=== PATIENT | male | born 1960 | race Two or more races ===

== ENCOUNTER 2016-08-31 13:06 | Inpatient (IN) | payer OTHER ==
[2016-08-31 16:48] VITALS: BMI 29.9
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
[2016-08-31] MEDS ORDERED: MAGNESIUM CITRATE 300 ML BOTTLE PO PRN (18:57)
[2016-08-31] MEDS ORDERED: LOPERAMIDE HCL 2 MG CAPSULE PO PRN (18:57)
[2016-08-31] MEDS ORDERED: ACETAMINOPHEN 325 MG TABLET (FP) PO PRN (18:57)
[2016-08-31] MEDS ORDERED: MENTHOL/PHENOL 1 EACH UD MM PRN (18:57)
[2016-08-31] MEDS ORDERED: guaiFENesin/D-METHORPHAN HB 10 ML UNIT-DOSE CUPS PO PRN (18:57)
[2016-08-31] MEDS ORDERED: IBUPROFEN 400 MG TABLET (FP) PO PRN (18:57)
[2016-08-31] MEDS ORDERED: P-EPHED 60MG/TRIPROLIDI 2.5MG TABLET PO PRN (18:57)
[2016-08-31] MEDS ORDERED: MAGNESIUM HYDROX 2400MG/30ML ORAL SUSPENSION 30 ML CUP PO PRN (18:57)
[2016-08-31] MEDS ORDERED: MAG HYDROX/AL HYDROX/SIMETH 30 ML UNIT-DOSE CUP PO PRN (18:57)
[2016-08-31] MEDS ORDERED: NICOTINE POLACRILEX 2 MG GUM BC PRN (18:57)
[2016-08-31] MEDS: amLODIPine BESYLATE 10 MG TABLET (FP) PO SCH (19:45)
[2016-08-31] MEDS: cloNIDine HCL 0.1 MG TABLET PO PRN (19:45)
[2016-08-31] MEDS ORDERED: METHADONE HCL 10 MG TABLET (FOR DETOX USE ONLY) PO ONE ×2 (20:32→23:00)
[2016-08-31] MEDS: THIAMINE HCL 100 MG TABLET (FP) PO SCH (22:09)
[2016-08-31] MEDS: diphenhydrAMINE HCL 50 MG CAPSULE PO PRN (22:09)
[2016-08-31] MEDS: diazePAM 5 MG TABLET PO PRN (22:09)
[2016-09-01 01:11] LABS: URINE APPEARANCE CLEAR; URINE BILIRUBIN NEGATIVE (NEGATIVE); URINE COLOR AMBER; URINE GLUCOSE (UA) NEGATIVE (NEGATIVE); URINE KETONE NEGATIVE (NEGATIVE); URINE LEUK ESTERASE NEGATIVE (NEGATIVE); URINE NITRITE NEGATIVE (NEGATIVE); URINE UROBILINOGEN NEGATIVE E.U./dl (0.2-1.0)
[2016-09-01 01:13] LABS: URINE BLOOD 3+ (NEGATIVE); URINE PROTEIN 3+ (NEGATIVE)
[2016-09-01 01:26] LABS: GRANULAR CASTS 7 /lpf; URINE BACTERIA FEW /hpf (NONE SEEN); URINE HYALINE CAST 4 /lpf; URINE MUCUS RARE; URINE RBC 34 /hpf (0-3); URINE WBC 4 /hpf (3-5)
[2016-09-01] MEDS: cloNIDine HCL 0.1 MG TABLET PO PRN ×2 (05:32→22:03)
[2016-09-01] MEDS: diazePAM 5 MG TABLET PO PRN ×3 (05:32→22:03)
[2016-09-01 09:43] LABS: MCH 26.8 pg (25.7-33.7); MCHC 32.4 g/dl (32.0-35.9); MEAN CELL VOLUME 82.5 fl (80-96); MEAN PLT VOLUME 8.8 fl (7.5-11.1); PLATELET COUNT 215 K/MM3 (134-434); RDW 21.9 % (11.9-15.9); WHITE BLOOD COUNT 7.9 K/mm3 (4.0-10.0)
--- NOTE | 2016-09-01 09:51 | PN ---
[facility] CIWA - CIWA Score Nausea/Vomitin-No Nausea/No Vomiting Muscle Tremors: 4-Moderate,w/Arms Extend Anxiety: 4-Mod. Anxious/Guarded Agitation: 3 Paroxysmal Sweats: 3 Orientation: 0-Oriented Tacttile Disturbances: 0-None Auditory Disturbances: 0-None Visual Disturbances: 0-None Headache: 0-None Present CIWA-Ar Total Score: 14 S Progress Note (SOAP) Subjective: Sweating,anxiety,tremors,interrupted sleep,restless Objective: 09/01/16 09:50 Vital Signs - 8 hr 09/01/16 09/01/16 09/01/16 03:29 06:23 09:14 Temperature 97.8 F 97.4 F L Pulse Rate 75 77 Respiratory 18 18 18 Rate Blood Pressure 147/97 157/89 Laboratory Tests 08/31/16 23:02 Urine Color Dee Urine Appearance Clear Urine pH 5.0 Ur Specific [place] 1.024 Urine Protein 3+ H Urine Glucose (UA) Negative Urine Ketones Negative Urine Blood 3+ H Urine Nitrite Negative Urine Bilirubin Negative Urine Urobilinogen Negative Ur Leukocyte Esterase Negative Urine RBC 34 Urine WBC 4 Ur Epithelial Cells Rare Urine Bacteria Few Hyaline Casts 4 Granular Casts 7 Urine Mucus Rare labs noted Assessment: 09/01/16 09:51 Withdrawal sx. Plan: Continue detox
[2016-09-01] MEDS ORDERED: METHADONE HCL 10 MG TABLET (FOR DETOX USE ONLY) PO ONE (10:00)
[2016-09-01] MEDS: amLODIPine BESYLATE 10 MG TABLET (FP) PO SCH (10:04)
[2016-09-01] MEDS: PRENATAL VITAMINS W/ FOLIC ACID TABLET (FP) PO SCH (10:04)
[2016-09-01] MEDS: NICOTINE 14 MG/24 HOURS TOPICAL PATCH TD SCH (10:04)
[2016-09-01 10:34] LABS: ALBUMIN 3.3 g/dl (3.4-5.0); ALK PHOS 166 U/L (45-117); ANION GAP 12 (8-16); BILIRUBIN,TOTAL 0.9 mg/dL (0.2-1.0); CALCIUM 8.5 mg/dL (8.5-10.1); CO2 25 mmol/L (21-32); CREATININE 0.9 mg/dL (0.7-1.3); GLUCOSE,RANDOM 119 mg/dL (74-106); SGOT/AST 51 U/L (15-37); SGPT/ALT 32 U/L (12-78); TOT PROT 8.2 g/dl (6.4-8.2)
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
--- NOTE | 2016-09-01 11:47 | EKG ---
Test Reason : Blood Pressure : / mmHG Vent. Rate : 078 BPM Atrial Rate : 078 BPM P-R Int : 200 ms QRS Dur : 112 ms QT Int : 392 ms P-R-T Axes : 020 001 025 degrees QTc Int : 446 ms NORMAL SINUS RHYTHM NORMAL ECG NO PREVIOUS ECGS AVAILABLE Confirmed by KATJA DE LA GARZA MD ([id number]) on 09/01/2016 11:46:42 AM Referred By: Confirmed By:KATJA DE LA GARZA MD
[2016-09-01] MEDS: THIAMINE HCL 100 MG TABLET (FP) PO SCH (22:03)
[2016-09-01] MEDS: diphenhydrAMINE HCL 50 MG CAPSULE PO PRN (22:04)
[2016-09-02] MEDS: PRENATAL VITAMINS W/ FOLIC ACID TABLET (FP) PO SCH (09:35)
[2016-09-02] MEDS: amLODIPine BESYLATE 10 MG TABLET (FP) PO SCH (09:35)
[2016-09-02] MEDS: diazePAM 5 MG TABLET PO PRN ×2 (09:37→22:01)
[2016-09-02] MEDS ORDERED: METHADONE HCL 5 MG TABLET (FOR DETOX USE ONLY) PO ONE (10:00)
[2016-09-02] MEDS: NICOTINE 14 MG/24 HOURS TOPICAL PATCH TD SCH (10:06)
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
--- NOTE | 2016-09-02 10:28 | PN ---
[facility] COWS - Scale Resting Pulse: 1= [place] 81-100 Sweatin= Chills/Flushing Restless Observation: 3= Extraneous Movement Pupil Size: 2= Moderately Dilated Bone or Joint Aches: 4=Acute Joint/Muscle Pain Runny Nose/ Eye Tearin= Nasal Congestion GI Upset > 30mins: 1= Stomach Cramp Tremor Observation of Outstretched Hands: 2= Slight Tremor Visible Yawning Observation: 2= >3x During Session Anxiety or Irritability: 2=Irritable/Anxious Goose Flesh Skin: 0=Smooth Skin COWS Score: 19
[2016-09-02] MEDS ORDERED: LISINOPRIL 10 MG TABLET (FP) PO SCH (10:45)
[2016-09-02] MEDS ORDERED: CYCLOBENZAPRINE HCL 10 MG TABLET (FP) PO ONE (11:03)
[2016-09-02] MEDS: CYCLOBENZAPRINE HCL 10 MG TABLET (FP) PO SCH ×2 (14:17→22:01)
[2016-09-02] MEDS: THIAMINE HCL 100 MG TABLET (FP) PO SCH (22:01)
[2016-09-02] MEDS: diphenhydrAMINE HCL 50 MG CAPSULE PO PRN (22:01)
[2016-09-03] MEDS: diazePAM 5 MG TABLET PO PRN ×2 (05:23→13:13)
[2016-09-03] MEDS: CYCLOBENZAPRINE HCL 10 MG TABLET (FP) PO SCH ×3 (05:23→22:12)
[2016-09-03] MEDS ORDERED: METHADONE HCL 5 MG TABLET (FOR DETOX USE ONLY) PO ONE (10:00)
[2016-09-03] MEDS: NICOTINE 14 MG/24 HOURS TOPICAL PATCH TD SCH (10:11)
[2016-09-03] MEDS: PRENATAL VITAMINS W/ FOLIC ACID TABLET (FP) PO SCH (10:11)
[2016-09-03] MEDS: amLODIPine BESYLATE 10 MG TABLET (FP) PO SCH (10:11)
--- NOTE | 2016-09-03 14:35 | PN ---
[facility] Progress Note (SOAP) Subjective: Interrupted sleep, Tremors, Body Aches, Sweating, Stomach Cramping. Objective: PT. A & O X 3. 09/03/16 14:33 Vital Signs Temperature 96.4 F L 09/03/16 13:15 Pulse Rate 97 H 09/03/16 13:15 Respiratory Rate 19 09/03/16 13:15 Blood Pressure 133/89 09/03/16 13:15 O2 Sat by Pulse Oximetry (%) Laboratory Last Values WBC 7.9 K/mm3 (4.0-10.0) 09/01/16 06:00 RBC 4.10 M/mm3 (4.00-5.60) 09/01/16 06:00 Hgb 11.0 GM/dL (11.7-16.9) L 09/01/16 06:00 Hct 33.9 % (35.4-49) L 09/01/16 06:00 MCV 82.5 fl (80-96) 09/01/16 06:00 MCHC 32.4 g/dl (32.0-35.9) 09/01/16 06:00 RDW 21.9 % (11.9-15.9) H 09/01/16 06:00 Plt Count 215 K/MM3 (134-434) 09/01/16 06:00 MPV 8.8 fl (7.5-11.1) 09/01/16 06:00 Sodium 140 mmol/L (136-145) 09/01/16 06:00 Potassium 3.9 mmol/L (3.5-5.1) 09/01/16 06:00 Chloride 103 mmol/L (98-107) 09/01/16 06:00 Carbon Dioxide 25 mmol/L (21-32) 09/01/16 06:00 Anion Gap 12 (8-16) 09/01/16 06:00 BUN 15 mg/dL (7-18) 09/01/16 06:00 Creatinine 0.9 mg/dL (0.7-1.3) 09/01/16 06:00 Creat Clearance w eGFR > 60 (>60) 09/01/16 06:00 Random Glucose 119 mg/dL (74-106) H 09/01/16 06:00 Calcium 8.5 mg/dL (8.5-10.1) 09/01/16 06:00 Total Bilirubin 0.9 mg/dL (0.2-1.0) 09/01/16 06:00 AST 51 U/L (15-37) H 09/01/16 06:00 ALT 32 U/L (12-78) 09/01/16 06:00 Alkaline Phosphatase 166 U/L (45-117) H 09/01/16 06:00 Total Protein 8.2 g/dl (6.4-8.2) 09/01/16 06:00 Albumin 3.3 g/dl (3.4-5.0) L 09/01/16 06:00 Urine Color Dee 08/31/16 23:02 Urine Appearance Clear 08/31/16 23:02 Urine pH 5.0 (5.0-8.0) 08/31/16 23:02 Ur Specific [place] 1.024 (1.001-1.035) 08/31/16 23:02 Urine Protein 3+ (NEGATIVE) H 08/31/16 23:02 Urine Glucose (UA) Negative (NEGATIVE) 08/31/16 23:02 Urine Ketones Negative (NEGATIVE) 08/31/16 23:02 Urine Blood 3+ (NEGATIVE) H 08/31/16 23:02 Urine Nitrite Negative (NEGATIVE) 08/31/16 23:02 Urine Bilirubin Negative (NEGATIVE) 08/31/16 23:02 Urine Urobilinogen Negative E.U./dl (0.2-1.0) 08/31/16 23:02 Ur Leukocyte Esterase Negative (NEGATIVE) 08/31/16 23:02 Urine RBC 34 /hpf (0-3) 08/31/16 23:02 Urine WBC 4 /hpf (3-5) 08/31/16 23:02 Ur Epithelial Cells Rare /hpf (FEW) 08/31/16 23:02 Urine Bacteria Few /hpf (NONE SEEN) 08/31/16 23:02 Hyaline Casts 4 /lpf 08/31/16 23:02 Granular Casts 7 /lpf 08/31/16 23:02 Urine Mucus Rare 08/31/16 23:02 RPR Titer Nonreactive (NONREACTIVE) 09/01/16 06:00 LABS NOTED. Assessment: 09/03/16 14:34 WITHDRAWAL SYMPTOMS. Plan: CONTINUE DETOX. ADVISED PATIENT TO FOLLOW-UP WITH [facility] REHAB MEDICAL PROVIDER AFTER DISCHARGE FROM DETOX FOR GENERAL MEDICAL ASSESSMENT AND FOR ABNORMAL ADMISSION LAB VALUES.
[2016-09-03] MEDS: diphenhydrAMINE HCL 50 MG CAPSULE PO PRN (22:11)
[2016-09-03] MEDS: THIAMINE HCL 100 MG TABLET (FP) PO SCH (22:12)
[2016-09-04] MEDS: CYCLOBENZAPRINE HCL 10 MG TABLET (FP) PO SCH ×3 (05:20→22:14)
[2016-09-04] MEDS ORDERED: METHADONE HCL 10 MG TABLET (FOR DETOX USE ONLY) PO ONE (10:00)
[2016-09-04] MEDS: NICOTINE 14 MG/24 HOURS TOPICAL PATCH TD SCH (10:09)
[2016-09-04] MEDS: PRENATAL VITAMINS W/ FOLIC ACID TABLET (FP) PO SCH (10:09)
[2016-09-04] MEDS: amLODIPine BESYLATE 10 MG TABLET (FP) PO SCH (10:09)
--- NOTE | 2016-09-04 11:16 | PN ---
[facility] Progress Note (SOAP) Subjective: nausea, sweats, interrupted sleep, anxiety, tremors Objective: 09/04/16 11:15 Vital Signs - 8 hr 09/04/16 09/04/16 09/04/16 03:30 06:06 10:17 Temperature 97.8 F 97.1 F L Pulse Rate 89 99 H Respiratory 18 18 20 Rate Blood Pressure 146/85 117/76 Laboratory Tests 08/31/16 09/01/16 09/01/16 23:02 06:00 06:00 WBC 7.9 RBC 4.10 Hgb 11.0 L Hct 33.9 L MCV 82.5 MCHC 32.4 RDW 21.9 H Plt Count 215 MPV 8.8 Sodium 140 Potassium 3.9 Chloride 103 Carbon Dioxide 25 Anion Gap 12 BUN 15 Creatinine 0.9 Creat Clearance w eGFR > 60 Random Glucose 119 H Calcium 8.5 Total Bilirubin 0.9 AST 51 H ALT 32 Alkaline Phosphatase 166 H Total Protein 8.2 Albumin 3.3 L Urine Color Dee Urine Appearance Clear Urine pH 5.0 Ur Specific [place] 1.024 Urine Protein 3+ H Urine Glucose (UA) Negative Urine Ketones Negative Urine Blood 3+ H Urine Nitrite Negative Urine Bilirubin Negative Urine Urobilinogen Negative Ur Leukocyte Esterase Negative Urine RBC 34 Urine WBC 4 Ur Epithelial Cells Rare Urine Bacteria Few Hyaline Casts 4 Granular Casts 7 Urine Mucus Rare RPR Titer 09/01/16 06:00 WBC RBC Hgb Hct MCV MCHC RDW Plt Count MPV Sodium Potassium Chloride Carbon Dioxide Anion Gap BUN Creatinine Creat Clearance w eGFR Random Glucose Calcium Total Bilirubin AST ALT Alkaline Phosphatase Total Protein Albumin Urine Color Urine Appearance Urine pH Ur Specific [place] Urine Protein Urine Glucose (UA) Urine Ketones Urine Blood Urine Nitrite Urine Bilirubin Urine Urobilinogen Ur Leukocyte Esterase Urine RBC Urine WBC Ur Epithelial Cells Urine Bacteria Hyaline Casts Granular Casts Urine Mucus RPR Titer Nonreactive elevated glucose, hypoalbuminemia Assessment: 09/04/16 11:16 withdrawal sx, malnutrition 2/2 substance use Plan: cont detox, dietary advice given, fluids, encourage ambulation
[2016-09-04] MEDS: THIAMINE HCL 100 MG TABLET (FP) PO SCH (22:14)
[2016-09-04] MEDS: diphenhydrAMINE HCL 50 MG CAPSULE PO PRN (22:14)
[2016-09-05] MEDS: CYCLOBENZAPRINE HCL 10 MG TABLET (FP) PO SCH (05:29)
[2016-09-05] MEDS ORDERED: METHADONE HCL 5 MG TABLET (FOR DETOX USE ONLY) PO ONE (06:00)
[2016-09-05 06:20] VITALS: BP 125/83; PULSE 88; TEMP 97.8
--- NOTE | 2016-09-05 08:28 | DS ---
[facility] Detox Discharge Summary Admission Date: 08/31/16 Discharge Date: 09/05/16 - History Present History: Cocaine Dependence, Opioid Dependence Pertinent Past History: HTN - Physical Exam Results Vital Signs: Vital Signs Temperature 97.8 F 09/05/16 06:19 Pulse Rate 88 09/05/16 06:19 Respiratory Rate 18 09/05/16 06:19 Blood Pressure 125/83 09/05/16 06:19 O2 Sat by Pulse Oximetry (%) Pertinent Admission Physical Exam Findings: Withdrawal sx. Laboratory Last Values WBC 7.9 K/mm3 (4.0-10.0) 09/01/16 06:00 RBC 4.10 M/mm3 (4.00-5.60) 09/01/16 06:00 Hgb 11.0 GM/dL (11.7-16.9) L 09/01/16 06:00 Hct 33.9 % (35.4-49) L 09/01/16 06:00 MCV 82.5 fl (80-96) 09/01/16 06:00 MCHC 32.4 g/dl (32.0-35.9) 09/01/16 06:00 RDW 21.9 % (11.9-15.9) H 09/01/16 06:00 Plt Count 215 K/MM3 (134-434) 09/01/16 06:00 MPV 8.8 fl (7.5-11.1) 09/01/16 06:00 Sodium 140 mmol/L (136-145) 09/01/16 06:00 Potassium 3.9 mmol/L (3.5-5.1) 09/01/16 06:00 Chloride 103 mmol/L (98-107) 09/01/16 06:00 Carbon Dioxide 25 mmol/L (21-32) 09/01/16 06:00 Anion Gap 12 (8-16) 09/01/16 06:00 BUN 15 mg/dL (7-18) 09/01/16 06:00 Creatinine 0.9 mg/dL (0.7-1.3) 09/01/16 06:00 Creat Clearance w eGFR > 60 (>60) 09/01/16 06:00 Random Glucose 119 mg/dL (74-106) H 09/01/16 06:00 Calcium 8.5 mg/dL (8.5-10.1) 09/01/16 06:00 Total Bilirubin 0.9 mg/dL (0.2-1.0) 09/01/16 06:00 AST 51 U/L (15-37) H 09/01/16 06:00 ALT 32 U/L (12-78) 09/01/16 06:00 Alkaline Phosphatase 166 U/L (45-117) H 09/01/16 06:00 Total Protein 8.2 g/dl (6.4-8.2) 09/01/16 06:00 Albumin 3.3 g/dl (3.4-5.0) L 09/01/16 06:00 Urine Color Dee 08/31/16 23:02 Urine Appearance Clear 08/31/16 23:02 Urine pH 5.0 (5.0-8.0) 08/31/16 23:02 Ur Specific [place] 1.024 (1.001-1.035) 08/31/16 23:02 Urine Protein 3+ (NEGATIVE) H 08/31/16 23:02 Urine Glucose (UA) Negative (NEGATIVE) 08/31/16 23:02 Urine Ketones Negative (NEGATIVE) 08/31/16 23:02 Urine Blood 3+ (NEGATIVE) H 08/31/16 23:02 Urine Nitrite Negative (NEGATIVE) 08/31/16 23:02 Urine Bilirubin Negative (NEGATIVE) 08/31/16 23:02 Urine Urobilinogen Negative E.U./dl (0.2-1.0) 08/31/16 23:02 Ur Leukocyte Esterase Negative (NEGATIVE) 08/31/16 23:02 Urine RBC 34 /hpf (0-3) 08/31/16 23:02 Urine WBC 4 /hpf (3-5) 08/31/16 23:02 Ur Epithelial Cells Rare /hpf (FEW) 08/31/16 23:02 Urine Bacteria Few /hpf (NONE SEEN) 08/31/16 23:02 Hyaline Casts 4 /lpf 08/31/16 23:02 Granular Casts 7 /lpf 08/31/16 23:02 Urine Mucus Rare 08/31/16 23:02 RPR Titer Nonreactive (NONREACTIVE) 09/01/16 06:00 labs noted - Treatment Hospital Course: Detox Protocol Followed, Detoxed Safely, Responded well, Discharged Condition Good, Rehab Referral Accepted - Medication Discharge Medications: Ambulatory Orders Amlodipine Besylate/Benazepril [Lotrel 2.5-10 mg Capsule] 1 each PO DAILY Ibuprofen [Motrin -] 600 mg PO QID PRN 08/31/16 - Diagnosis (1) Hypertension Current Visit: Yes Status: Acute Qualifiers: Hypertension type: essential hypertension Qualified Code(s): I10 - Essential (primary) hypertension (2) Nicotine dependence Current Visit: Yes Status: Acute Qualifiers: Nicotine product type: cigarettes Substance use status: in withdrawal Qualified Code(s): F17.213 - Nicotine dependence, cigarettes, with withdrawal (3) Opioid dependence with withdrawal Current Visit: Yes Status: Acute (4) Cocaine dependence, uncomplicated Current Visit: Yes Status: Chronic (5) Positive PPD, treated Current Visit: Yes Status: Resolved - AMA Did Patient Leave Against Medical Advice: No
== END 2016-09-05 09:15 | disposition home or self-care (01) | DRG 897 ==
LOC: YASAS 13:06 → Y3N 18:42
PROVIDERS: ADMIT Internal Medicine; ATTEND Internal Medicine
PROC: HZ2ZZZZ Detoxification Services for Substance Abuse Treatment (ICD-10-PCS; principal; 2016-08-31)
DX: F11.23 Opioid dependence with withdrawal (principal); F14.20 Cocaine dependence, uncomplicated; F17.210 Nicotine dependence, cigarettes, uncomplicated; F19.24 Other psychoactive substance dependence with psychoactive substance-induced mood disorder; F34.1 Dysthymic disorder; I10 Essential (primary) hypertension; R76.11 Nonspecific reaction to tuberculin skin test without active tuberculosis; R73.9 Hyperglycemia, unspecified; R26.2 Difficulty in walking, not elsewhere classified; E88.09 Other disorders of plasma-protein metabolism, not elsewhere classified; E66.9 Obesity, unspecified; Z68.30 Body mass index [BMI] 30.0-30.9, adult
CPT/HCPCS: 36415; 71020-TC; 80053; 81003; 81015; 85027; 86593; 93005; 93010